=== PATIENT | female | born 1950 | race Caucasian/White ===

== ENCOUNTER → 2016-09-06 | Outpatient (CLI) | payer MEDICARE, BC | END | disposition home or self-care (01) | LOC: MW.CHFP 15:00 | PROVIDERS: ATTEND Physician Assistant | DX: J45.901 Unspecified asthma with (acute) exacerbation (principal) | CPT/HCPCS: G0463 ==

== ENCOUNTER → 2016-10-01 | Outpatient (CLI) | payer MEDICARE, BC ==
--- NOTE | 2016-10-02 13:29 | CR ---
EXAM DATE: 10/01/16 PATIENT'S AGE: 66 Patient: GORDON ESQUIVEL Facility: [place], [place] Site . Site : 1950 Study: XRay Chest [id number]/10/2017 11:57:43 AM Ordering Physician: Hemal Vivar Final Report: HISTORY: Cough. Findings: PA and lateral chest radiographs are compared with 24 May 2015. The cardiac silhouette is normal. Pulmonary vasculature and fina are normal. No lobar consolidation or pleural effusion is seen. There is minimal scoliosis convex to the right in the thoracic spine. Surgical clips are seen overlying the left breast and left axilla. Impression: No acute cardiopulmonary disease or infiltrate. Dictated by Kati Caban MD @ Oct 01 2016 9:45PM (Electronic Signature) Report Signed by Proxy and Original Signed Document filed in the Medical Record. CANDELARIA
== END ==
LOC: MW.CHFP 10:13
PROVIDERS: ATTEND Physician Assistant
DX: R05 Cough (principal); J20.9 Acute bronchitis, unspecified; J45.909 Unspecified asthma, uncomplicated
CPT/HCPCS: 36415; 71020; 71020-26; 85025; G0463

== ENCOUNTER 2017-12-05 19:56 | Emergency (ER) | payer MEDICARE, BC ==
[2017-12-05 21:22] VITALS: BP 130/67
[2017-12-05] MEDS ORDERED: Ketorolac 60 MG/2 ML SDV IM ONE (22:02)
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
== END 2017-12-06 00:02 | disposition home or self-care (01) ==
LOC: MW.ED 19:56
DX: S06.0X9A Concussion with loss of consciousness of unspecified duration, initial encounter (principal); M54.5 Low back pain; Z79.899 Other long term (current) drug therapy; V29.40XA Motorcycle driver injured in collision with unspecified motor vehicles in traffic accident, initial encounter
CPT/HCPCS: 70450; 70450-26; 72100; 72100-26; 72125; 72125-26; 72170; 72170-26; 99284-25

== ENCOUNTER 2021-03-09 09:53 | Day surgery (SDC) | payer MEDICARE, BC ==
[~2021-03-09 09:53] MED LIST: Lactated Ringers 1,000 ML IV SCH; Sodium Chloride 0.9% 10 ML SDV IV PRN; Sodium Chloride 0.9% 10 ML Syringe FLUSH PRN; Sodium Chloride 0.9% 2.5 ML Syringe FLUSH PRN
--- NOTE | 2021-03-09 10:28 | PCM.PREANE ---
Preanesthetic Assessment - Procedure Proposed Procedure: Colonoscopy - Anesthesia/Transfusion/Family Hx Anesthesia History: Prior Anesthesia Without Reaction Other Type of Anesthesia Reaction Comment: Denies any known problem in past Transfusion History: No Prior Transfusion(s) - Review of Systems General: No Symptoms Pulmonary: No Symptoms Cardiovascular: No Symptoms Gastrointestinal: No Symptoms Neurological: No Symptoms Other: Reports: None - Physical Assessment NPO Status Date: 03/07/21 NPO Status Time: 19:00 (Solids, Black coffee today until 829) Vital Signs: Last Vital Signs Temp 97.2 F 03/09/21 10:07 Pulse 65 03/09/21 10:07 Resp 16 03/09/21 10:07 BP 136/60 03/09/21 10:07 Pulse Ox 100 03/09/21 10:07 Height: 5 ft 2 in Weight: 59.874 kg ASA Class: 1 Mental Status: Alert & Oriented x3 Airway Class: Mallampati = 1 Dentition: Reports: Normal Dentition Thyro-Mental Finger Breadths: 3 Mouth Opening Finger Breadths: 3 ROM/Head Extension: Full Lungs: Clear to Auscultation, Normal Respiratory Effort Cardiovascular: Regular Rate, Regular Rhythm - Allergies Allergies/Adverse Reactions: Allergies Allergy/AdvReac Type Severity Reaction Status Date / Time No Known Allergies Allergy Verified 03/03/21 08:22 - Acknowledgements Anesthesia Type Planned: General Anesthesia Pt an Appropriate Candidate for the Planned Anesthesia: Yes Alternatives and Risks of Anesthesia Discussed w Pt/Guardian: Yes Pt/Guardian Understands and Agrees with Anesthesia Plan: Yes PreAnesthesia Questionnaire - Past Health History Medical/Surgical History: Denies Medical/Surgical History HEENT History: Reports: Other (See Below) Other HEENT History: wears glasses Cardiovascular History: Reports: None Respiratory History: Reports: None Gastrointestinal History: Reports: None Genitourinary History: Reports: None 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: Reports: Musculoskeletal History: Reports: None Neurological History: Reports: Concussion Psychiatric History: Reports: None Endocrine/Metabolic History: Reports: None Hematologic History: Reports: None Immunologic History: Reports: None Oncologic (Cancer) History: Reports: Breast Other Oncologic History: breast cancer, treated with radiation and anastrozole Dermatologic History: Reports: Melanoma Other Dermatologic History: melanoma removed from chest - Infectious Disease History Infectious Disease History: Reports: None - Past Surgical History Head Surgeries/Procedures: Reports: None HEENT Surgical History: Reports: Other (See Below) Other HEENT Surgeries/Procedures: Excision of 2 separate Nevi to neck & Cardiovascular Surgical History: Reports: None Respiratory Surgical History: Reports: None GI Surgical History: Reports: Colonoscopy Female Surgical History: Reports: Breast Biopsy, Dilitation & Evacuation, Tubal Ligation, Other (See Below) Other Female Surgeries/Procedures: hx breast lumpectomy & sentinel node bx Endocrine Surgical History: Reports: None Neurological Surgical History: Reports: None Musculoskeletal Surgical History: Reports: None Oncologic Surgical History: Reports: Biopsy of Breast Dermatological Surgical History: Reports: Skin Biopsy - SUBSTANCE USE Tobacco Use Status *Q: Former Tobacco User Tobacco Use Within Last Twelve Months: No Days Per Week of Alcohol Use: 7 Number of Drinks Per Day: 1 Total Drinks Per Week: 7 Recreational Drug Use History: No - HOME MEDS Home Medications: Home Meds Biotin 300 mcg PO DAILY 03/03/21 [History] Calcium Carbonate [Calcium] 600 mg PO BID 03/03/21 [History] Cholecalciferol (Vitamin D3) [Vitamin D3] 1,000 units PO DAILY 03/03/21 [History] Multivitamin 1 tab PO DAILY 03/03/21 [History] Vit A/Vit C/Vit E/Zinc/Copper [Preservision] 1 tab PO BID 03/03/21 [History] Zinc Gluconate [Zinc] 100 mg PO DAILY 03/03/21 [History] - CURRENT (IN HOUSE) MEDS Current Meds: Current Medications Lactated Ringer's (Ringers, Lactated) 1,000 mls @ 125 mls/hr IV ASDIRECTED [facility] Last Admin: 03/09/21 10:12 Dose: 125 mls/hr Documented by: Sodium Chloride (Sodium Chloride 0.9% 10 Ml Syringe) 10 ml FLUSH ASDIRECTED PRN PRN Reason: Keep Vein Open Sodium Chloride (Sodium Chloride 0.9% 2.5 Ml Syringe) 2.5 ml FLUSH ASDIRECTED PRN PRN Reason: Keep Vein Open Sodium Chloride (Sodium Chloride 0.9% 10 Ml Syringe) 10 ml FLUSH ASDIRECTED PRN PRN Reason: Keep Vein Open Sodium Chloride (Sodium Chloride 0.9% 2.5 Ml Syringe) 2.5 ml FLUSH ASDIRECTED PRN PRN Reason: Keep Vein Open Sodium Chloride (Sodium Chloride 0.9% 10 Ml Sdv) 10 ml IV ASDIRECTED PRN PRN Reason: IV Use
[2021-03-09] MEDS ORDERED: propofoL 50 ML ONE (12:26)
[2021-03-09] MEDS ORDERED: Lidocaine 2% 5 ML SDV ONE (13:20)
--- NOTE | 2021-03-09 14:07 | PCM.OPNOTE ---
- General Post-Op/Procedure Note Date of Surgery/Procedure: 03/09/21 Operative Procedure(s): Screening colonoscopy with polypectomy Findings: Ascending colon polyp Pre Op Diagnosis: Family history of colon cancer Post-Op Diagnosis: ascending colon polyp Anesthesia Technique: [facility] [place] Primary Surgeon: Carmel Anderson Condition: Good
--- NOTE | 2021-03-09 14:18 | PCM.POSTAN ---
POST ANESTHESIA ASSESSMENT - MENTAL STATUS Mental Status: Alert, Oriented - VITAL SIGNS Vital Signs: Last Vital Signs Temp 97.2 F 03/09/21 10:07 Pulse 65 03/09/21 10:07 Resp 16 03/09/21 10:07 BP 136/60 03/09/21 10:07 Pulse Ox 100 03/09/21 10:07 - RESPIRATORY Respiratory Status: Respiratory Rate WNL, Airway Patent, O2 Saturation Stable - CARDIOVASCULAR CV Status: Pulse Rate WNL, Blood Pressure Stable - GASTROINTESTINAL GI Status: No Symptoms - PAIN Pain Score: 0 - POST OP HYDRATION Hydration Status: Adequate & Stable
--- NOTE | 2021-03-09 14:22 | PCM48HPAN ---
Post Anesthesia Note - EVALUATION WITHIN 48HRS OF ANESTHETIC Vital Signs in Normal Range: Yes Patient Participated in Evaluation: Yes Respiratory Function Stable: Yes Airway Patent: Yes Cardiovascular Function Stable: Yes Hydration Status Stable: Yes Pain Control Satisfactory: Yes Nausea and Vomiting Control Satisfactory: Yes Mental Status Recovered: Yes Vital Signs: Last Vital Signs Temp 97.2 F 03/09/21 10:07 Pulse 64 03/09/21 14:13 Resp 13 03/09/21 14:13 BP 117/51 L 03/09/21 14:13 Pulse Ox 100 03/09/21 14:13 - COMMENTS/OBSERVATIONS Free Text/Narrative:: Pt doing well post-op. VSS. No apparent anesthetic complications. Dr. Ronal Ramirez
[2021-03-09 14:33] VITALS: BP 137/62; PULSE 61
--- NOTE | 2021-03-10 20:47 | OR ---
SURGEON: CARMEL ANDERSON MD DATE OF PROCEDURE: 03/09/2021 PREOPERATIVE DIAGNOSIS: Family history of colon cancer. POSTOPERATIVE DIAGNOSIS: Ascending colon polyp. PROCEDURE PERFORMED: Screening colonoscopy with polypectomy. PRIMARY SURGEON: Carmel Anderson MD ANESTHESIA: MAC. INSTRUMENT USED: Olympus colonoscope. EXTENT OF EXAM: To the cecum. PREPARATION: Good. LIMITATIONS: None. INDICATIONS FOR EXAMINATION: The patient is a 71-year-old female who presents for a screening colonoscopy. Her sister was diagnosed with colon cancer. We discussed the procedure, expected perioperative course, and the risks. She verbalized understanding and wishes to proceed. PROCEDURE IN DETAIL: The patient was brought in to the endoscopy suite and placed in a left lateral decubitus position. A time-out was completed verifying the patient's name, age, date of , allergies, and procedure to be performed. Monitored anesthesia care was induced and continuous oxygen was provided via nasal cannula throughout the procedure. After adequate sedation was achieved, a digital rectal exam was performed. This exam was within normal limits. A well-lubricated colonoscope was inserted in the rectum and advanced under direct visualization to the level of the cecum. The cecum was identified by both visual and anatomic landmarks. A photograph was taken of the cecal cap. The scope was then fully withdrawn while examining the color, texture, anatomy, and integrity of mucosa from the cecum to the anal canal. The patient was found to have one sessile ascending colon polyp. This was removed in piecemeal fashion using a cold biopsy forceps. The remainder of the colon appeared normal. The scope was then brought into the rectum and retroflexed to allow visualization of the anal canal opening. This appeared normal and a photograph was taken. The scope was straightened out and fully withdrawn. The cecum to anus time was greater than 6 minutes. The patient tolerated the procedure well and was transferred to the PACU in stable condition. ENDOSCOPIC DIAGNOSIS: Ascending colon polyp. RECOMMENDATION: Follow up in clinic in two weeks. CARA / PANKAJ /[id number]
== END 2021-03-09 14:34 | disposition home or self-care (01) ==
LOC: MW.SDS 09:53
PROVIDERS: ATTEND Surgery
DX: Z12.11 Encounter for screening for malignant neoplasm of colon (principal); K63.5 Polyp of colon; Z80.0 Family history of malignant neoplasm of digestive organs; Z79.899 Other long term (current) drug therapy; J45.901 Unspecified asthma with (acute) exacerbation; Z98.890 Other specified postprocedural states; Z87.891 Personal history of nicotine dependence
CPT/HCPCS: 45380; 88305; J2704; J7120; 00812; 99100

== ENCOUNTER 2023-05-29 17:37 | Emergency (ER) | payer MEDICARE ==
[2023-05-29 18:23] LABS: BASOPHILS ABSOLUTE AUTO 0.03 K/uL (0.00-0.20); BASOPHILS PERCENT AUTO 0.5 % (0.0-1.0); EOSINOPHILS ABSOLUTE AUTO 0.11 K/uL (0.00-0.45); HEMATOCRIT 35.4 % (37.0-47.0); HEMOGLOBIN 12.3 g/dL (12.0-16.0); IMMATURE GRAN ABSOLUTE AUTO 0.01 K/uL (0.00-0.05); IMMATURE GRAN PERCENT AUTO 0.2 % (0.0-0.4); LYMPHOCYTES ABSOLUTE AUTO 1.84 K/uL (1.00-4.80); LYMPHOCYTES PERCENT AUTO 33.5 % (24.0-44.0); MEAN CORPUSCULAR HEMOGLOBIN 30.6 pg (28.0-32.0); MEAN CORPUSCULAR HGB CONC 34.7 g/dL (32.0-36.0); MEAN CORPUSCULAR VOLUME 88.1 fL (83.0-99.0); MEAN PLATELET VOLUME 9.9 fL (9.4-12.3); MONOCYTES ABSOLUTE AUTO 0.93 K/uL (0.00-0.80); MONOCYTES PERCENT AUTO 16.9 % (0.0-8.0); NEUTROPHILS ABSOLUTE AUTO 2.57 K/uL (1.80-7.70); NEUTROPHILS PERCENT AUTO 46.9 % (41.0-71.0); PLATELET COUNT,PLT 217 K/uL (150-400); RED BLOOD CELL COUNT 4.02 M/uL (4.10-5.30); WHITE BLOOD CELL COUNT,WBC 5.49 K/uL (3.9-11.3)
[2023-05-29 18:44] LABS: CORONAVIRUS COVID-19 NAA NEGATIVE (NEGATIVE); INFLUENZA A NAA NEGATIVE (NEGATIVE); INFLUENZA B NAA NEGATIVE (NEGATIVE)
[2023-05-29 18:52] LABS: A/G RATIO 1.2 (0.9-1.6); ALBUMIN 3.7 g/dL (3.4-5.0); BILIRUBIN TOTAL 0.3 mg/dL (0.2-1.0); EST CRCL DRUG DOSING (CG) 40.22 mL/min; POTASSIUM,K 4.3 mmol/L (3.5-5.1); PROTEIN TOTAL,TP 6.8 g/dL (6.4-8.2)
[2023-05-29] MEDS ORDERED: Aspirin 81 MG Tab.Chew PO ONE (19:48)
[2023-05-29 23:19] VITALS: BP 122/63; PULSE 61
== END 2023-05-29 23:19 | disposition home or self-care (01) ==
LOC: MW.ED 17:37
DX: R07.9 Chest pain, unspecified (principal); Z20.822 Contact with and (suspected) exposure to COVID-19; Z79.899 Other long term (current) drug therapy
CPT/HCPCS: 0240U; 36415; 71045; 80053; 84484; 85025; 93005; 99285; A9270; 99283